=== PATIENT | female | born 1985 | race Caucasian/White ===

== ENCOUNTER → 2021-01-03 12:46 | Outpatient (CLI) | payer OTHER, SELFPAY ==
--- NOTE | ~2021-01-03 | US_ITS ---
US transvaginal DATE: 01/03/2021 13:30 INDICATION: Excessive frequent menstruation with irregular cycle. Pelvic cramping. TECHNIQUE: Real-time imaging via transvaginal approach COMPARISON: None FINDINGS: Uterus measures 6.5 cm height, 3.6 cm anteroposterior and 4.3 cm transverse dimension. Cent ral endometrial echo measures 4 mm AP dimension. There is a 1.8 x 1.5 x 1.7 mm anechoic area at the uterine fundus, with through transmission posterio r enhancement. Right ovary 4.3 x 2.6 x 3.1 cm, with vascular flow. There is a 2.2 x 1.6 x 1.7 cm right ovarian cyst The left ovary measures 2.2 x 1.6 x 2.1 cm, with vascular flow. There is mild free fluid in the right adnexal area. A tubular-like hypoechoic area in the left adnexa. Ruptured ovarian cyst, ruptured ectopic, endometri chelo or hydrosalpinx/pyosalpinx are not excluded. Alternatively, this may represent a complicated flui d collection. Pelvic inflammatory disease is not excluded. Endometrioma would be included in the diff erential diagnosis. IMPRESSION: 2.2 cm right ovarian cyst; mild free fluid in the right adnexal area Tubular like hypoechoic area at the left adnexal area; differential diagnosis includes ruptured cyst, hydrosalpinx, pyosalpinx, pelvic inflammatory disease, endometrioma, ruptured ectopic 1.8 cm uterine fundic cyst Reviewed, dictated and finalized at [facility]. Reviewed, dictated and finalized at [facility]. IMPRESSION: 2.2 cm right ovarian cyst; mild free fluid in the right adnexal are a Tubular like hypoechoic area at the left adnexal area; differential diagnosis i ncludes ruptured cyst, hydrosalpinx, pyosalpinx, pelvic inflammatory disease, e ndometrioma, ruptured ectopic 1.8 cm uterine fundic cyst
== END ==
PROVIDERS: Visit Provider Nurse Practitioner
DX: N92.0 Excessive and frequent menstruation with regular cycle (principal); N83.201 Unspecified ovarian cyst, right side
CPT/HCPCS: 76830

== ENCOUNTER 2021-02-17 00:29 | Day surgery (SDC) | payer OTHER, SELFPAY ==
[2021-02-07 14:49] VITALS: BMI 27.8
[2021-02-17] MEDS: ACETAMINOPHEN 500 MG TABLET 1000 MG PO (07:16)
[2021-02-17] MEDS: LACTATED RINGERS 1,000 ML 30 ML IV CONT (07:16)
[2021-02-17 07:19] VITALS: BP 135/86; PULSE 75; RESP 16; TEMP 36.9; O2SAT 100; BMI 28.3
--- NOTE | 2021-02-17 07:30 | WPDHPUPDATE1 ---
History and Physical Update Update Date/Time: 02/17/21 07:30 History and Physical has been reviewed, including an updated exam of the patient. There are NO changes in the patient's condition. Risks, benefits, and alternatives have been discussed and questions answered. Patient agrees to proceed with procedure.
--- NOTE | 2021-02-17 07:30 | PM.HPGS ---
History of Present Illness History of Present Illness Consent: Risks, benefits, and alternatives have been discussed and questions answered. Patient agrees to proceed with procedure. Chief complaint: menorrhaghia Narrative: Chelsea Morrow is a 35 year old female with increased dysmenorrhea and vaginal bleeding. She is status post endometrial ablation in 2017 room and cycles have slowly gotten worse since that time. The plan is to proceed with D&C hysteroscopy to evaluate the current lining. Possible pathology is discussed. Risks of infection, bleeding, perforation, and inability to enter the cavity were reviewed. Patient voices understanding and agrees to proceed. Review of Systems Constitutional: Constitutional: Reports headache(s) Psychiatric: Psychiatric: Reports anxiety PMFSH Past Medical History Medical History (Updated 02/17/21 @ 07:36 by Felipa Leo MD) Anxiety HTN (hypertension) Hypothyroid Lymph nodes enlarged Axillary lymph node removed secondary to cat scratch fever Migraines Surgical History Surgical History (Updated 02/17/21 @ 07:35 by Felipa Leo MD) History of x 2 told excessive scar tissue at the 2nd Status post hysteroscopic ablation of endometrium Status post tubal ligation With Social History Social History Years smoked: 10 Smoking status: Former smoker Smoking end date: 05/17/15 Alcohol use details: RARE Substance use: never Substance use type: does not use Living arrangements: with family Spiritual care concerns: No Meds Home Medications and Allergies Home Medications Medication Instructions Recorded Confirmed Type amlodipine [Norvasc] 10 mg PO DAILY 02/07/21 02/17/21 History citalopram [Celexa] 20 mg PO HS 02/07/21 02/17/21 History sumatriptan succinate [Imitrex] 100 mg PO ONCE PRN 02/07/21 02/17/21 History Allergies Allergy/AdvReac Type Severity Reaction Status Date / Time No Known Allergies Allergy Verified 02/17/21 07:16 Vital Signs Vital Signs - 24 hr 02/17/21 07:19 Temperature 98.4 F Pulse Rate 75 Respiratory Rate 16 Blood Pressure 135/86 Pulse Oximetry 100 Exam Const: General: comfortable and no acute distress : External Female Exam: normal external appearance Speculum Exam - Vagina: normal appearance of the vagina Speculum Exam - Cervix: normal appearance of the cervix Bimanual exam- vagina & uterus: normal bimanual exam Bimanual Exam- Adnexa, other: normal adnexae Assessment and Plan Assessment and plan (1) Menorrhagia: Code(s): N92.0 - Excessive and frequent menstruation with regular cycle Status: Acute Assessment and Plan: Plan D&C hysteroscopy to further evaluate
--- NOTE | 2021-02-17 07:43 | WPDANESEPPF ---
Anes - Initial Pre Proc Eval Procedure: Operation Date: 02/17/21 08:15 Proposed Procedures p Hysteroscopy, Dilation and Curettage - Felipa Leo MD Date/Time: 02/17/21 07:43 Surgeon: Felipa Leo MD Pre Op Diagnosis: menorrhaghia Patient Data Age: 35 Gender: F Height: 1.6 m Weight: 72.4 kg Last Vital Signs Temp 36.9 C 02/17/21 07:19 Pulse 75 02/17/21 07:19 Resp 16 02/17/21 07:19 BP 135/86 02/17/21 07:19 Pulse Ox 100 02/17/21 07:19 Allergies Allergy/AdvReac Type Severity Reaction Status Date / Time No Known Allergies Allergy Verified 02/17/21 07:16 Home Medications Medication Instructions Recorded Confirmed Type amlodipine [Norvasc] 10 mg PO DAILY 02/07/21 02/17/21 History citalopram [Celexa] 20 mg PO HS 02/07/21 02/17/21 History sumatriptan succinate [Imitrex] 100 mg PO ONCE PRN 02/07/21 02/17/21 History Patient hx anesthesia problems: post op nausea/vomiting Family hx anesthesia problems: none Results Review: All pre-operative results and documents have been reviewed as part of the pre-operative evaluation. [facility] Past Medical History Medical History Anxiety HTN (hypertension) Hypothyroid Lymph nodes enlarged Axillary lymph node removed secondary to cat scratch fever Migraines Surgical History Surgical History History of x 2 told excessive scar tissue at the 2nd Status post hysteroscopic ablation of endometrium Status post tubal ligation With Social History Social History Years smoked: 10 Smoking status: Former smoker Smoking end date: 05/17/15 Alcohol use details: RARE Substance use: never Substance use type: does not use Living arrangements: with family Spiritual care concerns: No Anes - Eval Final PreProcedure Day of Procedure 02/17/21 07:43 Patient weight: overweight Heart: regular rate and rhythm Lungs: clear to auscultation Airway: Mallampati scale class II Neurological: alert and oriented Last oral intake: >/= 8 hours ASA classification: II Emergent: no Anesthetic plan: proceed Anesthesia type and monitoring: general GIVS and standard monitoring Results Review: All pre-operative results and documents have been reviewed as part of the pre-operative evaluation. Informed Consent: The patient's anesthetic plan and its attendant risks and benefits were discussed with the patient/family/POA. Questions were solicited and answers provided to the satisfaction of the patient/family/POA.
[2021-02-17] MEDS: SCOPOLAMINE 1.5 MG PATCH TRANSDERM (07:47)
[2021-02-17 08:45] VITALS: BP 119/67; PULSE 71; RESP 16; O2SAT 98
--- NOTE | 2021-02-17 08:53 | P.OP_ITS ---
Procedure Note - Detailed Date of Procedure 02/17/21 Pre-op Diagnosis menorrhaghia Post-op Diagnosis same Procedure Performed D&C hysteroscopy Surgeon Felipa Leo MD Anesthesia MAC and local Findings uterus sounds to 6cm and appears ablated with extensive scar tissue and no discrete lesion Description of Procedure the patient is taken to the operating room and placed under anesthesia in the dorsal lithotomy position. She is prepped and draped in the usual sterile fashion. [place] speculum was placed in the vagina and the cervix grasped on the anterior lip with a tenaculum. The cervix is injected with 1% lidocaine in each quadrant. The uterus is attempted to be sounded and stenosis is noted at approximately 3cm. The os Finders are used and the cervix dilated and the uterus sounds to 6cm. The diagnostic hysteroscope was placed with no abnormalities noted. The medium sharp curette is used to sharply curette the endometrium until a good uterine cry was noted in all areas. Minimal material is obtained consistent with the scarred appearance. Instruments are removed. Sponge, needle, and instrument counts are correct per the OR staff. Patient is awakened from anesthesia and taken to recovery in stable condition. Estimated Blood Loss 5 Drains No Packing No Pathology yes ( Endometrial curettings) Complications No immediate complications Condition stable Disposition PACU
[2021-02-17 09:10] VITALS: BP 115/69; PULSE 77; RESP 16; O2SAT 99
[2021-02-17 09:30] VITALS: BP 125/77; PULSE 55; RESP 16
== END 2021-02-17 09:38 | disposition home or self-care (01) ==
PROVIDERS: PCP Internal Medicine; Visit Provider Obstetrics & Gynecology Gynecology
PROC: 0U5B8ZZ Destruction of Endometrium, Via Natural or Artificial Opening Endoscopic (ICD-10-PCS; CPT 58563; principal; 2021-02-17 08:15)
DX: N92.0 Excessive and frequent menstruation with regular cycle (principal); N85.8 Other specified noninflammatory disorders of uterus; F41.9 Anxiety disorder, unspecified; I10 Essential (primary) hypertension; E03.9 Hypothyroidism, unspecified; Z87.891 Personal history of nicotine dependence
CPT/HCPCS: 58558; 88305; A9270; J2250; J2704; J3010; J7030; J7120

== ENCOUNTER 2021-02-28 09:16 | Outpatient (CLI) | payer OTHER, SELFPAY ==
--- NOTE | 2021-02-28 09:19 | ECG_ITS ---
Measurements Intervals [place] Rate: 76 P: 78 OK: 165 QRS: 5 QRSD: 98 T: 29 QT: 367 QTc: 414 Interpretive Statements SINUS RHYTHM POOR R WAVE PROGRESSION, ANTERIOR LEADS BORDERLINE ECG Electronically Signed On 02-28-2021 9:45:02 CDT by Robert Rush D.O.
== END 2021-02-28 09:17 | disposition home or self-care (01) ==
LOC: ANHSURGERY 09:18
PROVIDERS: PCP Internal Medicine; Visit Provider Obstetrics & Gynecology Gynecology
DX: Z01.818 Encounter for other preprocedural examination (principal); I10 Essential (primary) hypertension; N92.0 Excessive and frequent menstruation with regular cycle
CPT/HCPCS: 36415; 86850; 86900; 86901; 93005

== ENCOUNTER 2021-03-03 09:25 | Inpatient (IN) | payer OTHER, SELFPAY ==
[2021-02-24 09:35] VITALS: BMI 28.3
[2021-03-03] VITALS (18 sets, daily range): BP systolic 121–135; BP diastolic 72–85; PULSE 68–102; RESP 12–18; TEMP 36.7–37.1; O2SAT 94–100
--- NOTE | 2021-03-03 07:26 | WPDHPUPDATE1 ---
History and Physical Update Update Date/Time: 03/03/21 07:26 History and Physical has been reviewed, including an updated exam of the patient. There are NO changes in the patient's condition. Risks, benefits, and alternatives have been discussed and questions answered. Patient agrees to proceed with procedure.
--- NOTE | 2021-03-03 07:27 | PM.IMHP ---
H&P: HPI History of Present Illness Date/Time: 03/03/21 07:27 The patient is a 35-year-old 3 para 2 aborta 1 admitted for total abdominal hysterectomy bilateral salpingectomy. The patient has a recurrence of her menorrhagia. She had an endometrial ablation in 2016 with initial good success. Over the summer the patient had increased in her cycles and underwent hysteroscopy with D&C. The endometrium appeared ablated with extensive scar tissue and no obvious lesions and biopsy was benign. The patient has elected to proceed with definitive therapy with hysterectomy. In addition the ultrasound shows hydrosalpinx and the patient will have both tubes excised. Risks of infection, bleeding, injury to internal organs (bowel, bladder, ureters, ovaries, ect. ) were reviewed and the patient agrees to proceed. Postop expectations and recovery were also reviewed. Due to prior x2 the plan is for total abdominal hysterectomy with bilateral salpingectomy Chief Complaint: Heavy cycles with dysmenorrhea Review of Systems Neurologic: Reports headache(s) Psychiatric: Psychiatric: Reports anxiety PMFSH Past Medical History Medical History (Updated 02/28/21 @ 18:47 by Avinash Mata DO) Anxiety HTN (hypertension) Hypothyroid Lymph nodes enlarged Axillary lymph node removed secondary to cat scratch fever Migraines PONV (postoperative nausea and vomiting) Surgical History Surgical History History of x 2 told excessive scar tissue at the 2nd Status post hysteroscopic ablation of endometrium Status post tubal ligation With Social History Social History Years smoked: 10 Smoking status: Former smoker Smoking end date: 05/17/15 Alcohol intake: current Alcohol use details: RARE Substance use: never Substance use type: does not use Living arrangements: with family Spiritual care concerns: No Meds Home Medications and Allergies Home Medications Medication Instructions Recorded Confirmed Type amlodipine [Norvasc] 10 mg PO DAILY 02/07/21 03/03/21 History citalopram [Celexa] 20 mg PO HS 02/07/21 03/03/21 History sumatriptan succinate [Imitrex] 100 mg PO ONCE PRN 02/07/21 03/03/21 History Allergies Allergy/AdvReac Type Severity Reaction Status Date / Time No Known Allergies Allergy Verified 03/03/21 07:09 Exam Const: General: healthy appearing and alert Orientation/consciousness: patient oriented x3 Resp: Effort & Inspection: normal respiratory effort Auscultation: clear to auscultation bilaterally Cardio: Rate: regular rate Rhythm: regular rhythm GI: GI Palp: Yes Soft to palpation, No Tenderness to palpation present (GI) and No Palpable mass present : External Female Exam: normal external appearance Speculum Exam - Vagina: normal appearance of the vagina and normal vaginal discharge Speculum Exam - Cervix: normal appearance of the cervix Bimanual exam- vagina & uterus: uterine size normal and consistency normal Bimanual Exam- Adnexa, other: normal adnexae and No adnexal tenderness Neuro: General: patient oriented x3 Assessment and Plan Assessment and plan (1) Menorrhagia: Code(s): N92.0 - Excessive and frequent menstruation with regular cycle Status: Acute Assessment and Plan: Plan is to proceed with total abdominal hysterectomy and bilateral salpingectomy
--- NOTE | 2021-03-03 07:37 | WPDANESEPPF ---
Anes - Initial Pre Proc Eval Procedure: Operation Date: 03/03/21 09:00 Proposed Procedures p Total Abdominal Hysterectomy with Bilateral Salpingectomy - Felipa Leo MD Date/Time: 03/03/21 07:37 Surgeon: Felipa Leo MD Pre Op Diagnosis: menorrhaghia, hydrosalpinx Patient Data Age: 35 Gender: F Height: 1.6 m Weight: 76 kg Allergies Allergy/AdvReac Type Severity Reaction Status Date / Time No Known Allergies Allergy Verified 03/03/21 07:09 Home Medications Medication Instructions Recorded Confirmed Type amlodipine [Norvasc] 10 mg PO DAILY 02/07/21 03/03/21 History citalopram [Celexa] 20 mg PO HS 02/07/21 03/03/21 History sumatriptan succinate [Imitrex] 100 mg PO ONCE PRN 02/07/21 03/03/21 History Patient hx anesthesia problems: none Family hx anesthesia problems: none Results Review: All pre-operative results and documents have been reviewed as part of the pre-operative evaluation. [facility] Past Medical History Medical History (Updated 02/28/21 @ 18:47 by Avinash Mata DO) Anxiety HTN (hypertension) Hypothyroid Lymph nodes enlarged Axillary lymph node removed secondary to cat scratch fever Migraines PONV (postoperative nausea and vomiting) Surgical History Surgical History History of x 2 told excessive scar tissue at the 2nd Status post hysteroscopic ablation of endometrium Status post tubal ligation With Social History Social History Years smoked: 10 Smoking status: Former smoker Smoking end date: 05/17/15 Alcohol intake: current Alcohol use details: RARE Substance use: never Substance use type: does not use Living arrangements: with family Spiritual care concerns: No Anes - Eval Final PreProcedure Day of Procedure 03/03/21 07:37 Patient weight: overweight Heart: regular rate and rhythm Lungs: clear to auscultation and normal air movement Airway: Mallampati scale class II Neurological: alert and oriented Last oral intake: >/= 8 hours ASA classification: II Emergent: no Anesthetic plan: proceed Anesthesia type and monitoring: general ETT and standard monitoring Results Review: All pre-operative results and documents have been reviewed as part of the pre-operative evaluation. Informed Consent: The patient's anesthetic plan and its attendant risks and benefits were discussed with the patient/family/POA. Questions were solicited and answers provided to the satisfaction of the patient/family/POA.
[2021-03-03] MEDS: ACETAMINOPHEN 500 MG TABLET 1000 MG PO (07:52)
[2021-03-03] MEDS: KETOROLAC 15 MG/ML VIAL (*BKC) IV PUSH (07:56)
[2021-03-03] MEDS: ceFAZolin 2 GM/D5W 50 ML 2 GM/50 ML BAG IVPB (08:45)
--- NOTE | 2021-03-03 09:51 | W.PM.PROC2 ---
Procedure Note - Detailed Date of Procedure 03/03/21 Pre-op Diagnosis menorrhaghia, hydrosalpinx Post-op Diagnosis same Procedure Performed Total abdominal hysterectomy and bilateral salpingectomy Surgeon Felipa Leo MD Anesthesia general Findings Adhesions from the omentum to the anterior abdominal wall. Dense adhesions of the bladder flap. Normal-appearing uterus, ovaries, and right tube. Left hydrosalpinx with dense adhesions to the left ovary. Description of Procedure The patient is taken to the operating room and placed under anesthesia in the dorsal supine position. She was prepped and draped in the usual sterile fashion. Pfannenstiel skin incision is made with a scalpel through her prior incision and carried down to the underlying layer of fascia. Fascial incision is extended laterally using [place] scissors. [place] was used to tent the fascia which was then dissected off using sharp dissection due to adhesions. During this process the peritoneum was entered. The rectus muscles in the posterior portion are very adherent to 1 another a scalpel was used to release the scar tissue. The the peritoneum was then able to be extended with blunt traction. The omentum is adherent to the anterior abdominal wall. This is removed using Bovie cautery. The bowel was then packed away using moist laparotomy sponges and the [place] is placed. The uterus is grasped on the cornu with large peans. The round ligaments were doubly ligated with 0 Vicryl and transected and the anterior leaf of the broad ligament incised meeting in the midline. The bladder is dissected off using sharp dissection due to dense adhesions. The utero-ovarian ligament on the left is isolated by creating a window in the posterior leaf of the broad ligament. A [place] is used to bring the distal tube above the ligament. The utero-ovarian ligament and the medial salpinx was then crossclamped with a minimally curved Z clamp. The tube was excised and the pedicle in transected. The pedicles tied off using 0 Vicryl in a stitch. The left tube has a hydrosalpinx that was very adherent to the left ovary therefore the window was created in the posterior leaf of the broad ligament and the utero-ovarian ligament is clamped transected and suture ligated with 0 Vicryl. This was tagged for future use. The uterine vessels are skeletonized, clamped, transected, and suture ligated with 0 Vicryl. The cardinal and uterosacral ligaments are serially clamped transected and suture ligated with 0 Vicryl. The uterosacral ligaments were tagged for future use. The vaginal cuff was entered anteriorly with the scalpel. The anterior vaginal cuff was grasped with a long [place]is. The specimen is amputated using Anyi scissors while grasping the vaginal cuff with [place]is clamps. The vaginal cuff was then closed using 0 Vicryl in a running locked fashion incorporating the previously tagged suture of the uterosacral ligaments. The tubes laterally angles are tied to the previously tagged uterosacral ligaments. The right angle required additional [id number] suture for hemostasis. The left tube was then dissected off the left ovary using sharp dissection. The hydrosalpinx is ruptured and the tube mesial salpinx is crossclamped with a minimally curved Z clamp. The tube was excised and the pedicle tied using 0 Vicryl. All inspection of the pedicles reveals hemostasis of the pelvis. The vaginal cuff is also hemostatic. All tags are cut out and the sponges and instruments are removed. The fascia was then closed using 0 Vicryl in a running fashion. Subcutaneous tissues were irrigated and made hemostatic using Bovie cautery. The upper incision is undermined due to adhesions. The skin is then closed using 4-0 Vicryl in a subcuticular fashion. Dermaflex was then placed over the incision. The patient is awakened from anesthesia and taken to recovery in stable condition. Sponge, needle, and instrument counts ar
--- NOTE | 2021-03-03 10:01 | PM.DS ---
DS: Admitting Diagnosis Discharge Date Admitting Diagnosis Menorrhagia and left hydrosalpinx DS: Discharge Diagnosis Discharge Diagnosis (1) Menorrhagia: Code(s): N92.0 - Excessive and frequent menstruation with regular cycle Status: Acute (2) Status post total abdominal hysterectomy: Code(s): Z90.710 - Acquired absence of both cervix and uterus Status: Acute DS: Summary Hospital Course Reason for hospitalization: Postop care Hospital Course: Prior to discharge the patient is voiding, tolerating regular diet, and ambulating. Status at Discharge Functional status at discharge: independent ambulation Overall status at discharge: patient is progressing back to baseline Time Spent with Patient Time attestation: Total time spent providing and/or coordinating discharge services: DS: Data Data Completed and Pending Pending studies at discharge: Pending at discharge 03/03/21 09:54 Surgical [PTH] Routine Discharge Plan Discharge Attending physician on discharge: Felipa Leo Discharging Clinician: Joshua Ruby Anticipated Discharge Date/Time: 03/05/21 07:47 Patient Disposition: Home, Self-Care Activity: may shower, may drive after 2 weeks and pelvic rest Diet: regular Wound Care Instructions: incision open to air Patient Instructions: Hysterectomy (DC) Stand Alone Forms: General Discharge Instructions Follow-up/Referrals: Felipa Leo MD [Physician] - 1 Week Discharge Medications: New hydrocodone-acetaminophen 5-325 mg Tablet 1 tablet PO Q4H PRN (Reason: Pain Rated 5 Or Less) Qty: 20 RF: 0 Continued sumatriptan succinate [Imitrex] 100 mg Tablet 100 mg PO ONCE PRN (Reason: Migraine Headache) RF: 0 citalopram [Celexa] 20 mg Tablet 20 mg PO HS RF: 0 amlodipine [Norvasc] 10 mg Tablet 10 mg PO DAILY RF: 0 Date of admission: 03/03/21 09:25 Primary Care Provider: Porsha*Don Admitting Provider: Felipa Leo Attending physician on admission: Joshua Ruby Condition: Stable
[2021-03-03] MEDS: LACTATED RINGERS 1,000 ML 30 ML IV CONT ×2 (10:07)
[2021-03-03] MEDS: fentaNYL CITRATE INJ (*CRX) 100 MCG/2 ML VIAL 25 MCG IV PUSH ×7 (10:20→10:45)
--- NOTE | 2021-03-03 11:36 | OBPPTRN ---
1124 Patient transferred to post room #289 via Bed. Oriented to unit, room, information board, admission packet and security measures. Patient verbalizes understanding.
[2021-03-03] MEDS: DEXTROSE 5%/LACTATED RINGERS 1,000 ML 125 ML IV CONT ×2 (11:56→20:01)
[2021-03-03] MEDS: KETOROLAC 30 MG/ML VIAL (*BKC) IV PUSH (11:58)
[2021-03-03] MEDS: ONDANSETRON INJ 4 MG/2 ML VIAL IV PUSH (12:13)
[2021-03-03] MEDS: MORPHINE SULFATE INJ (*CRX) 10 MG/ML AMP (12:30)
[2021-03-03] MEDS: FENTANYL 600MCG/NS30MLPCA(*CRX 600 MCG/30 ML PCA.VIAL IV CONT (12:33)
[2021-03-03] MEDS: CITALOPRAM HYDROBROMIDE 20 MG TABLET PO (21:58)
[2021-03-04] VITALS (7 sets, daily range): BP systolic 113–129; BP diastolic 71–80; PULSE 60–86; RESP 14–18; TEMP 36.8–37.2; O2SAT 100
[2021-03-04] MEDS: HYDROcodone/acetaminophen (*CRX) 10-325 MG TABLET 1 TAB PO ×3 (03:49→17:02)
[2021-03-04] MEDS: KETOROLAC 30 MG/ML VIAL (*BKC) IV PUSH (03:51)
[2021-03-04 05:37] LABS: Basophils Percent Auto 0.2 % (0.2-1.2); Eosinophils Percent Auto 0.2 % (0-4.4); Hematocrit 29.7 % (37.0-47.0); Hemoglobin 10.1 g/dL (12.0-15.0); Immature Granulocyte Absolute 0.05 K/mm3 (0.00-0.031); Immature Granulocyte Percent A 0.4 % (0-0.5); Lymphocytes Absolute Auto 2.08 K/mm3 (0.9-3.2); Mean Corpuscular Hemoglobin 30.5 pg (26-34); Mean Corpuscular Volume 89.7 fl (80-100); Mean Platelet Volume 10.3 fl (7.4-10.4); Monocytes Absolute Auto 1.1 K/mm3 (0.1-0.6); Monocytes Percent Auto 9.1 % (2.6-8.5); Neutrophils Absolute Auto 8.3 K/mm3 (1.3-6.7); Neutrophils Percent Auto 72.1 % (45.5-73.1); Platelet Count Result 232 k/mm3 (150-375); Red Blood Count 3.31 M/mm3 (4.2-5.4); Red Cell Distribution Width 12.5 % (11.5-14.5); White Blood Count 11.5 K/mm3 (4.5-10.0)
--- NOTE | 2021-03-04 07:46 | PM.GYNPNOP ---
RECTIFYING ATTENDANT - A/P Postoperative Procedures: Procedures Operation Date: 03/03/21 09:00 Actual Procedure Side Surgeon p Total Abdominal Hysterectomy with Bilateral Salpingectomy Not Applicable Felipa Leo MD Postoperative day: 1 Postoperative status: doing well Postoperative plan: routine post-op care Time Spent With Patient Time: Total time spent is greater than 50% in coordination of care (as documented) at patient's floor/unit and/or counseling patient: Time with patient: less than 15 minutes RECTIFYING ATTENDANT- PN:Subj Post-Op Subjective Date/time seen: 03/04/21 07:46 Subjective: patient reports feeling better, patient has no complaints and pain is well controlled Exam Narrative: inc c/d/i abdomen soft, nt, nd RECTIFYING ATTENDANT - PN: Obj Data Vital Signs Vital Signs: Vital Signs - 24 hr 03/03/21 10:07 03/03/21 10:20 03/03/21 10:30 Temperature 98.8 F Pulse Rate 101 H 102 H 97 Respiratory Rate 12 12 12 Blood Pressure 122/78 132/72 135/85 Pulse Oximetry 100 100 96 03/03/21 10:45 03/03/21 11:00 03/03/21 11:30 Temperature 98.8 F Pulse Rate 95 100 87 Respiratory Rate 12 16 18 Blood Pressure 129/79 128/78 126/74 Pulse Oximetry 94 96 97 03/03/21 12:33 03/03/21 13:30 03/03/21 14:30 Temperature Pulse Rate Respiratory Rate 16 16 16 Blood Pressure Pulse Oximetry 97 98 97 03/03/21 15:30 03/03/21 16:30 03/03/21 17:30 Temperature 98.1 F Pulse Rate 70 Respiratory Rate 16 16 16 Blood Pressure 126/83 Pulse Oximetry 99 100 100 03/03/21 18:45 03/03/21 19:45 03/03/21 20:34 Temperature 98.6 F 98.6 F Pulse Rate 68 68 Respiratory Rate 18 18 18 Blood Pressure 121/78 121/78 Pulse Oximetry 100 100 100 03/03/21 20:45 03/03/21 21:45 03/03/21 22:45 Temperature Pulse Rate Respiratory Rate 16 16 14 Blood Pressure Pulse Oximetry 99 98 99 03/04/21 00:00 03/04/21 01:00 03/04/21 02:00 Temperature 98.6 F Pulse Rate 80 Respiratory Rate 16 14 14 Blood Pressure 129/79 Pulse Oximetry 100 100 100 03/04/21 03:00 03/04/21 03:50 Temperature 98.9 F Pulse Rate 86 Respiratory Rate 14 18 Blood Pressure 120/71 Pulse Oximetry 100 100 Intake/Output Intake/Output: Intake & Output 03/01/21 03/02/21 03/03/21 03/04/21 23:59 23:59 23:59 23:59 Intake Total 2390 520 Output Total 460 1650 Balance 1930 -1130 Meds/Results Medications: Active Medications Generic Name Dose Route Start Last Admin Trade Name Freq PRN Reason Stop Dose Admin Hydrocodone Bitart/Acetaminophen 1 tab 03/03/21 11:11 Hydrocodone/Acetaminophen (*Crx) 5-325 Mg Tablet PO Q3H PRN Pain Rated 5 or Less Hydrocodone Bitart/Acetaminophen 1 tab 03/03/21 11:11 03/04/21 03:49 Hydrocodone/Acetaminophen (*Crx) 10-325 Mg Tablet PO 1 tab Q3H PRN Administration Pain Rated 6 or Greater Amlodipine Besylate 10 mg 03/04/21 09:00 Amlodipine Besylate 5 Mg Tablet PO DAILY YVONNE Citalopram Hydrobromide 20 mg 03/03/21 21:00 03/03/21 21:58 Citalopram Hydrobromide 20 Mg Tablet PO 20 mg HS YVONNE Administration Dextrose/Lactated Ringer's 1,000 mls @ 125 mls/hr 03/03/21 11:11 03/04/21 06:22 Dextrose 5%/Lactated Ringers IV CONT Not Given .Q8H YVONNE Ibuprofen 600 mg 03/03/21 11:11 Ibuprofen 600 Mg Tablet PO Q6H PRN Cramping Ketorolac Tromethamine 30 mg 03/03/21 11:11 03/04/21 03:51 Ketorolac 30 Mg/Ml Vial (*Bkc) IV PUSH 03/08/21 11:10 30 mg Q6H PRN Administration Pain Rated 4-6 Naloxone HCl 0.1 mg 03/03/21 11:11 Naloxone Hcl 0.4 Mg/Ml Vial IV PUSH Q2M PRN Respiratory rate less than 10 Ondansetron HCl 4 mg 03/03/21 11:11 03/03/21 12:13 Ondansetron Inj 4 Mg/2 Ml Vial IV PUSH 4 mg Q6H PRN Administration Nausea Simethicone 80 mg 03/03/21 11:11 Simethicone 80 Mg Tab.Chew PO Q2H PRN Gas Sumatriptan Succinate 100 mg 03/03/21 11:11 Sumatriptan Succinate 25 Mg Tablet PO ONCE PRN
[2021-03-04] MEDS: amLODIPine BESYLATE 5 MG TABLET 10 MG PO (08:41)
[2021-03-04] MEDS: SIMETHICONE 80 MG TAB.CHEW PO ×4 (08:41→21:16)
--- NOTE | 2021-03-04 09:44 | WPDANESPN ---
Anes - Prog Note Post-Op Date/Time: 03/04/21 09:44 Cardiovascular status: normal Respiratory status: normal Airway patency: baseline Mental status: baseline Post-Op hydration status: normal Vital Signs: Last Vital Signs Temp 36.8 C 03/04/21 08:35 Pulse 60 03/04/21 08:35 Resp 18 03/04/21 08:35 BP 129/80 03/04/21 08:35 Pulse Ox 100 03/04/21 08:35 Pain Score (VAS): 05/26 I/O: Intake & Output 03/03/21 03/04/21 03/04/21 23:59 07:59 15:59 Intake Total 2040 520 450 Output Total 350 1650 500 Balance 0746 -1101 -73 Laboratory Tests 03/04/21 04:21 03/04/21 04:21 WBC 11.5 H RBC 3.31 L Hgb 10.1 L Hct 29.7 L MCV 89.7 MCH 30.5 MCHC 34.0 RDW 12.5 Plt Count 232 MPV 10.3 Immature Gran % (Auto) 0.4 Neut % (Auto) 72.1 Lymph % (Auto) 18.0 L [place] % (Auto) 9.1 H Eos % (Auto) 0.2 Baso % (Auto) 0.2 Lymph # (Auto) 2.08 [place] # (Auto) 1.1 H Eos # (Auto) 0.0 Baso # (Auto) 0.0 Abs Immat Gran (auto) 0.05 H Absolute Neuts (auto) 8.3 H Absolute Nucleated RBC 0.0 Nucleated RBC % 0.0 Post-procedural complaints: none Patient Feedback: Patient satisfied with anesthetic care.
[2021-03-04] MEDS: HYDROcodone/acetaminophen (*CRX) 5-325 MG TABLET 1 TAB PO ×2 (12:25→21:16)
[2021-03-04] MEDS: IBUPROFEN 600 MG TABLET PO ×2 (12:25→21:16)
[2021-03-04] MEDS: CITALOPRAM HYDROBROMIDE 20 MG TABLET PO (21:16)
[2021-03-05] MEDS: IBUPROFEN 600 MG TABLET PO (04:09)
[2021-03-05] MEDS: SIMETHICONE 80 MG TAB.CHEW PO (04:09)
[2021-03-05] MEDS: HYDROcodone/acetaminophen (*CRX) 10-325 MG TABLET 1 TAB PO (04:10)
[2021-03-05 07:30] VITALS: PULSE 74; RESP 16; O2SAT 100
--- NOTE | 2021-03-05 07:46 | P.PNOB_ITS ---
OB - PN: Subj Subjective Date/time seen: 03/05/21 07:46 no complaints pain controlled OB - PN: Obj Data Labs CBC & Chem 7: 03/04/21 04:21 OB - PN A/P Assessment and Plan (1) Status post total abdominal hysterectomy: Code(s): Z90.710 - Acquired absence of both cervix and uterus Status: Acute Assessment and Plan: continue with pp care. Time Spent With Patient Time: Total time spent is greater than 50% in coordination of care (as docum ented) at patient's floor/unit and/or counseling patient: Exam Narrative: inc: c/d/i
[2021-03-05 07:50] VITALS: BP 116/71; PULSE 74; RESP 16; TEMP 36.9; O2SAT 100
== END 2021-03-05 09:00 | disposition home or self-care (01) | DRG 743 ==
LOC: ANHSURGERY 10:02 → ANHOB2 03-04 07:47
PROVIDERS: Admitting Provider Obstetrics & Gynecology Gynecology; PCP Internal Medicine; Visit Provider Obstetrics & Gynecology
PROC: 0UT94ZZ Resection of Uterus, Percutaneous Endoscopic Approach (ICD-10-PCS; principal; 2021-03-03 09:00)
DX: N92.0 Excessive and frequent menstruation with regular cycle (principal); N70.11 Chronic salpingitis; I10 Essential (primary) hypertension; E03.9 Hypothyroidism, unspecified; Z87.891 Personal history of nicotine dependence
CPT/HCPCS: 36415; 85025; 86850; 86900; 86901; 88307; 93005; A9270; J0330; J0690; J1100; J1170; J1885; J2250; J2270; J2405; J2704; J2710; J3010; J7120; J7121